=== PATIENT | female | born 1955 | race Caucasian/White ===

== ENCOUNTER 2022-09-28 11:40 | Day surgery (SDC) | payer MEDICARE, OTHER ==
[~2022-09-28] VITALS: Ht 167.6 cm; Wt 77.0 kg
--- NOTE | ~2022-09-28 | OR ---
[facility] [address] [place], [place] [address] Draft DATE OF OPERATION: 09/28/2022 SURGEON: Edson Ramirez MD PREOPERATIVE DIAGNOSIS: Positive Cologuard. POSTOPERATIVE DIAGNOSIS: No evidence of distinct polyp; mucosal hypertrophy of ileocecal valve and the area of the rectum (both excised). PROCEDURE: Total colonoscopy to cecum with cold morcellation polypectomy x2 (ablative therapy of mucosal lesions). ANESTHESIA: Intravenous sedation, fentanyl 200 mcg and Versed 8 mg. INDICATION: This 66-year-old white woman is a patient of Dr. Makayla Stuart. She underwent Cologuard testing twice (1st test invalid) and was found to have positive Cologuard test. She has no family history of colon cancer and no known prior history of polyps. She does describe increased bowel frequency. She is admitted at this time to undergo colonoscopy on the basis of the positive Cologuard test. She understands the risk of bleeding, infection, perforation, failure of diagnosis, missed diagnosis, and other indicated procedures being required and wished to proceed. FINDINGS: The prep was quite excellent. Complete colonoscopy was undertaken to the cecum with full intubation of the cecum. The initial thorough colonoscopy showed no obvious adenomatous changes and on that basis, the scope was repeated completely to the cecum. On this occasion, the mucosa of the ileocecal valve seemed somewhat hypertrophied and although not a typical adenoma was nevertheless ablated with cold morcellation technique after narrow band imaging performed. Additionally, on the followup colonoscopy, a rectal mucosal area that was somewhat thickened was excised as well, but was not a distinct polyp by any means. There were internal hemorrhoids. There was no distinct polyp and certainly no malignancy identified during the course of the colonoscopy and this may be consistent with a false positive rate of Cologuard at 13% particularly notable in older patients. PATIENT NAME: MARÍA DHALIWAL OPERATIVE REPORT DATE OF : 51 REPORT #: [id number] PHYSICIAN: EDSON RAMIREZ MD PCP: MAKAYLA STUART MD REPORT IS CONFIDENTIAL AND NOT TO BE RELEASED WITHOUT AUTHORIZATION [facility] [address] [place], [place] [address] Draft DESCRIPTION OF PROCEDURE: The patient was brought to the endoscopy suite and placed in lateral decubitus position, given intravenous sedation to the point of slurred speech and nystagmus. Digital examination showed extensive external hemorrhoidal changes. An Olympus video colonoscope was passed in the rectum and manipulated throughout the colon. A notably good bowel prep was seen. The scope was ultimately advanced to the cecum, which was insufflated with air. The ileocecal valve and appendiceal orifice appeared normal. The scope was withdrawn from that point and careful examination throughout was undertaken showing no obvious polypoid lesion of any sort. Retroflexed view of the rectum confirmed internal hemorrhoidal change. Given the positive Cologuard test and mindful of a distinct however small risk of missing an adenoma, the scope was once again advanced through the colon, ultimately to the cecum completing colonoscopy twice. The scope was then inflated to allow for better visualization of the ileocecal valve. There appeared to be some hypertrophic changes of the mucosa. This was ablated with cold morcellation technique and passed for pathology. Careful withdrawal of scope once again showed no sign of obvious polyp throughout the colon. In the rectosigmoid area, there was an area on with narrow band imaging that had a somewhat thickened area as well and that a distinct typical polyp was ablated with cold morcellation technique and possibly this represent the cause of her positive Cologuard test. Retroflexed view showed internal hemorrhoids. The scope was straightened, withdrawn, and removed. The patient was taken to the recovery room in good condition. CONCLUDING DIAGNOSIS: No clear evidence of polyp, however, two mucosal areas (ileocecal valve and rectum) were ablated with the possibility this may represent early adenomatous change. PLAN: We recommend repeat colonoscopy in 5 years sooner if clinically indicated. We will eagerly await the pathology report on the findings corresponding to biopsy. She will return to the ongoing care of Dr. Makayla Stuart otherwise. MD ZI Kamara/ONIL /[id number] PATIENT NAME: MARÍA DHALIWAL OPERATIVE REPORT DATE OF : 51 REPORT #: [id number] PHYSICIAN: EDSON RAMIREZ MD PCP: MAKAYLA STUART MD REPORT IS CONFIDENTIAL AND NOT TO BE RELEASED WITHOUT AUTHORIZATION [facility] [address] [place] [id number] Draft cc: Makayla Stuart MD Copies: MAKAYLA STUART MD ~ PATIENT NAME: MARÍA DHALIWAL OPERATIVE REPORT DATE OF : 51 REPORT #: [id number] PHYSICIAN: EDSON RAMIREZ MD PCP: MAKAYLA STUART MD REPORT IS CONFIDENTIAL AND NOT TO BE RELEASED WITHOUT AUTHORIZATION
[2022-09-28 12:49] VITALS: BP 133/68
--- NOTE | 2022-09-28 14:06 | NUR ---
09/28/22 1406 Svetlana Jacobson 1400-PATIENT ARRIVED TO PACU ON 4L NC RR EVEN PLACED ON 2L NC. PATIENT DROWSY DENIES PAIN OR NAUSEA. HOB ELEVATED. ABDOMEN SOFT IVF INFUSING.
[2022-09-28 15:17] VITALS: BP 140/74
--- NOTE | 2022-10-01 17:59 | PATH ---
[facility] [address] [facility] [place], [place] [address] Signed SPECIMEN(S): A ILEOCECAL VALVE BIOPSY SPECIMEN(S): B RECTAL POLYP SPECIMEN SOURCE: A. ILEOCECAL VALVE BIOPSY B. RECTAL POLYP CLINICAL HISTORY: Positive Cologuard test FINAL PATHOLOGIC DIAGNOSIS: A. Ileocecal valve biopsy: - Suggestive of sessile serrated lesion. - Negative for dysplasia. B. Rectal polyp: - Hyperplastic polyp. - Negative for dysplasia. NA:em:C2NR MICROSCOPIC EXAMINATION: Histologic sections of all submitted blocks are examined by light microscopy. These findings, together with the gross examination, support the pathologic diagnosis. GROSS DESCRIPTION: A. The specimen, labeled and designated "Hoeft, ileocecal valve biopsy," is received in formalin and consists of one ulrich soft tissue fragment measuring 0.3 cm. Entirely submitted in (A1). B. The specimen, labeled and designated "Hoeft, rectal polyp," is received in formalin and consists of two ulrich soft tissue fragments, measuring up to 0.2 cm. Entirely submitted in (B1). JS (under the direct supervision of a pathologist) The Gross Description was prepared using a voice recognition system. The report was reviewed for accuracy; however, sound-alike word errors, addition and/or deletions may occur. If there is any question about this report, please contact Client Services. PERFORMING LABORATORY: Technical component was performed by [email or web address], [address] [place] [id number] (CLIA# [id number]). Professional interpretation was performed by [email or web address], [address] [place] [address], PATIENT NAME: MARÍA DHALIWAL PATHOLOGY DATE OF : 51 REPORT #: [id number] PHYSICIAN: [facility] PCP: MAKAYLA SCHWARTZ MD REPORT IS CONFIDENTIAL AND NOT TO BE RELEASED WITHOUT AUTHORIZATION [facility] [address] [place], [place] [address] Signed [facility] [id number] (CLIA# [id number]). Diagnostician: Salvador Diaz MD Pathologist Electronically Signed 10/01/2022 Copies: ~ PATIENT NAME: MARÍA DHALIWAL PATHOLOGY DATE OF : 51 REPORT #: [id number] PHYSICIAN: [facility] PCP: MAKAYLA SCHWARTZ MD REPORT IS CONFIDENTIAL AND NOT TO BE RELEASED WITHOUT AUTHORIZATION
== END 2022-09-28 15:25 | disposition home or self-care (01) ==
LOC: OPS 11:40 → DS 11:40 → OPS 13:00
PROVIDERS: ATTEND Surgery
PROC: 0DBP8ZZ Excision of Rectum, Via Natural or Artificial Opening Endoscopic (ICD-10-PCS; 2022-09-28)
PROC: 0DBC8ZZ Excision of Ileocecal Valve, Via Natural or Artificial Opening Endoscopic (ICD-10-PCS; principal; 2022-09-28 13:00)
DX: R19.5 Other fecal abnormalities (principal); K62.1 Rectal polyp; K63.89 Other specified diseases of intestine; Z90.711 Acquired absence of uterus with remaining cervical stump; Z96.659 Presence of unspecified artificial knee joint
CPT/HCPCS: 99153; G0500; J0690; J2250; J2405; J3010; J7121